=== PATIENT | female | born 1940 | race Caucasian/White ===

== ENCOUNTER 2016-09-11 07:39 | Emergency (ER) | payer OTHER ==
[~2016-09-11] VITALS: Ht 162.6 cm; Wt 90.7 kg
[~2016-09-11 07:39] MED LIST: ACET-2165 PO; ASCO500T20 PO; ASPI-1063 PO; ATOR10TA68 PO; DONE10TA44 PO; EZET10TA PO; FAMO20TA8 PO; GABA-531 PO; INSU100V11 SQ; LACTIN PO; LEVO50TA8 PO; MEMA7CAP PO; METO-442 PO
[2016-09-11 07:40] VITALS: BP_SYST 179
[2016-09-11] MEDS ORDERED: IBUPROFEN 600 MG TABLET PO ONE (08:15)
[2016-09-11] MEDS ORDERED: INSULIN ASPART 100 UNITS/ML, 10 ML VIAL SUBCUT ONE (08:30)
[2016-09-11] MEDS ORDERED: METOPROLOL SUCCINATE 50 MG TAB.SR.24H (TOPROL XL) PO ONE (08:30)
[2016-09-11] MEDS ORDERED: BENAZEPRIL HCL 20 MG TABLET (LOTENSIN) PO ONE (08:30)
[2016-09-11] MEDS ORDERED: NITROGLYCERIN 0.4 MG TAB.SUBL SL ONE (09:45)
[2016-09-11 11:20] VITALS: BP_SYST 160
== END 2016-09-11 11:20 | disposition home or self-care (01) ==
LOC: SED 07:39
DX: I10 Essential (primary) hypertension (principal); R42 Dizziness and giddiness; E11.9 Type 2 diabetes mellitus without complications; Z88.2 Allergy status to sulfonamides; Z88.1 Allergy status to other antibiotic agents; Z88.5 Allergy status to narcotic agent
CPT/HCPCS: 82962; 96372; 99283; J1815

== ENCOUNTER 2020-11-19 12:06 | Outpatient (CLI) | payer OTHER ==
[~2020-11-19 12:06] MED LIST changes: -ACET-2165 PO; +ACET325T PO; -ASPI-1063 PO; +ASPI-1457 PO
== END 2020-11-19 20:36 | disposition home or self-care (01) ==
LOC: SRD 12:06
PROVIDERS: ATTEND Internal Medicine
DX: R06.89 Other abnormalities of breathing (principal)
CPT/HCPCS: 71046-TC

== ENCOUNTER 2020-12-26 09:12 | Observation (INO) | payer OTHER ==
[~2020-12-26] VITALS: Ht 152.4 cm; Wt 82.6 kg
[2020-12-26 09:17] VITALS: BP_SYST 100
[2020-12-26] MEDS ORDERED: NS 1000 ML IV.SOLN IV ONE (09:45)
[2020-12-26] MEDS ORDERED: BENA40TA8 PO (09:51)
[2020-12-26] MEDS ORDERED: MELA5TAB12 PO (09:51)
[2020-12-26] MEDS ORDERED: SYN50 PO (09:51)
[2020-12-26] MEDS ORDERED: CETI10CA11 PO (09:51)
[2020-12-26] MEDS ORDERED: FLUT1AER (09:51)
[2020-12-26] MEDS ORDERED: LOPE2CAP PO (09:51)
[2020-12-26] MEDS ORDERED: POTA20TA83 PO (09:51)
[2020-12-26] MEDS ORDERED: MEMA7CAP PO (09:51)
[2020-12-26] MEDS ORDERED: METO50TA7 PO (09:51)
[2020-12-26] MEDS ORDERED: VITD400 PO (09:51)
[2020-12-26] MEDS ORDERED: INSU100V SQ ×2 (09:51)
[2020-12-26] MEDS ORDERED: VITD2000 PO (09:51)
[2020-12-26] MEDS ORDERED: CRAN450T9 PO (09:51)
[2020-12-26] MEDS ORDERED: FURO40SO5 PO (09:51)
[2020-12-26 11:01] LABS: PROTHROMBIN TIME 10.7 SECS (9.5-12.5)
[2020-12-26 11:25] LABS: BASOPHILS # (AUTO) 0.1 K/uL (0.0-0.2); EOSINOPHILS # (AUTO) 0.3 K/uL (0.0-0.4); EOSINOPHILS % (AUTO) 4.1 % (0.0-4.0); HEMOGLOBIN 12.9 g/dL (12.0-16.0); LYMPHOCYTES # (AUTO) 1.5 K/uL (1.0-5.5); LYMPHOCYTES % (AUTO) 21.3 % (20.5-51.5); MEAN CORPUSCULAR HEMOGLOBIN 32 pg (27-31); MEAN CORPUSCULAR HGB CONC 33 % (32-36); MEAN CORPUSCULAR VOLUME 96 fL (79.0-98.0); MONOCYTES # (AUTO) 0.7 K/uL (0.0-1.0); MONOCYTES % (AUTO) 9.4 % (1.7-9.3); NEUTROPHILS # (AUTO) 4.5 K/uL (1.8-7.7); NEUTROPHILS % (AUTO) 64.2 % (40.0-70.0); PLATELET COUNT (AUTO) 187 K/uL (130-430); RED BLOOD CELL COUNT(AUTO) 4.08 MIL/uL (4.2-6.2); RED CELL DISTRIBUTION WIDTH 14.4 % (9.0-15.0)
[2020-12-26 11:55] LABS: ANION GAP 10 (5-15); CALCIUM 8.5 mg/dL (8.4-11.0); CHLORIDE 107 mmol/L (98-107); CREATININE 2.47 mg/dL (0.55-1.30); POTASSIUM 4.3 mmol/L (3.5-5.1); SODIUM SERUM 140 mmol/L (136-145); UREA NITROGEN, BLOOD 79 mg/dL (8-21)
[2020-12-26 12:01] LABS: ALANINE AMINOTRANSFERASE 15 U/L (12-78); ALBUMIN 2.7 g/dL (3.4-4.8); ASPARTATE AMINOTRANSFERASE 11 U/L (10-37); TOTAL BILIRUBIN 0.4 mg/dL (0.0-1.0)
[2020-12-26 12:03] LABS: GLUCOSE 408 mg/dL (70-99)
[2020-12-26 12:57] LABS: BILIRUBIN,URINE NEGATIVE (NEGATIVE); GLUCOSE,URINE 1+ (NEGATIVE); KETONES,URINE NEGATIVE (NEGATIVE); LEUKOCYTE ESTERASE ,URINE 3+ (NEGATIVE); NITRITE, URINE NEGATIVE (NEGATIVE); PROTEIN URINE NEGATIVE (NEGATIVE); UROBILINOGEN,URINE 0.2 (0.2-1.0)
[2020-12-26 13:00] LABS: BLOOD, URINE TRACE (NEGATIVE); CLARITY/URINE HAZY (CLEAR); COLOR,URINE STRAW (YELLOW)
[2020-12-26 13:18] LABS: BACTERIA,URINE FEW /HPF (None Seen); WBC,URINE 20-50 /HPF (0-3)
[2020-12-26 14:52] VITALS: BP_SYST 157
[2020-12-26] MEDS: NACL 0.9% 1,000 ML IV SCH (15:11)
[2020-12-26] MEDS ORDERED: METOCLOPRAMIDE HCL 10 MG/2 ML VIAL IVP PRN (17:00)
[2020-12-26] MEDS ORDERED: MORPHINE 2 MG/ML INJ. SYRINGE IVP PRN (17:00)
[2020-12-26] MEDS ORDERED: hydrALAZINE HCL 20 MG/ML VIAL IVP PRN (17:00)
[2020-12-26] MEDS ORDERED: ACETAMINOPHEN 325 MG TABLET PO PRN (17:00)
[2020-12-26] MEDS ORDERED: cefTRIAXone 1 GM IVPB PREMIX 50 ML IV SCH (17:00)
[2020-12-26] MEDS ORDERED: ONDANSETRON HCL 4 MG/2 ML VIAL IVP PRN (17:00)
[2020-12-26] MEDS ORDERED: cloNIDine HCL 0.1 MG TABLET PO PRN (17:00)
[2020-12-26] MEDS ORDERED: DEXTROSE 50% JECT 50 ML DISP.SYRIN IVP PRN (17:00)
[2020-12-26] MEDS: INSULIN REGULAR, HUMAN 100 UNITS/ML, 10 ML VIAL (humuLIN R) SUBCUT PRN (17:59)
[2020-12-26 20:30] VITALS: BP_SYST 154
[2020-12-26] MEDS ORDERED: DONEPEZIL HCL 5 MG TABLET (ARICEPT) PO SCH (21:00)
[2020-12-26] MEDS ORDERED: ATORVASTATIN 20 MG TABLET PO SCH (21:00)
[2020-12-26] MEDS: METOPROLOL SUCCINATE 50 MG TAB.SR.24H (TOPROL XL) PO SCH (21:52)
[2020-12-26] MEDS: GABAPENTIN 400 MG CAPSULE PO SCH (21:53)
[2020-12-27] MEDS: INSULIN REGULAR, HUMAN 100 UNITS/ML, 10 ML VIAL (humuLIN R) SUBCUT PRN ×4 (00:43→18:15)
[2020-12-27 00:51] VITALS: BP_SYST 158
[2020-12-27] MEDS: NACL 0.9% 1,000 ML IV SCH ×2 (01:18→11:31)
[2020-12-27 06:53] LABS: BASOPHILS # (AUTO) 0.1 K/uL (0.0-0.2); BASOPHILS % (AUTO) 0.8 % (0.0-2.0); EOSINOPHILS # (AUTO) 0.4 K/uL (0.0-0.4); EOSINOPHILS % (AUTO) 3.9 % (0.0-4.0); HEMATOCRIT 41.1 % (36-48); HEMOGLOBIN 13.7 g/dL (12.0-16.0); LYMPHOCYTES # (AUTO) 1.6 K/uL (1.0-5.5); MEAN CORPUSCULAR HEMOGLOBIN 32 pg (27-31); MEAN CORPUSCULAR HGB CONC 33 % (32-36); MEAN CORPUSCULAR VOLUME 95 fL (79.0-98.0); MONOCYTES # (AUTO) 0.7 K/uL (0.0-1.0); MONOCYTES % (AUTO) 7.3 % (1.7-9.3); NEUTROPHILS # (AUTO) 6.5 K/uL (1.8-7.7); PLATELET COUNT (AUTO) 211 K/uL (130-430); RED BLOOD CELL COUNT(AUTO) 4.32 MIL/uL (4.2-6.2); RED CELL DISTRIBUTION WIDTH 14.5 % (9.0-15.0); WHITE BLOOD COUNT (AUTO) 9.2 K/uL (4.8-10.8)
[2020-12-27] MEDS ORDERED: LEVOTHYROXINE SODIUM 0.05 MG TABLET PO SCH (07:00)
[2020-12-27 07:33] LABS: ALANINE AMINOTRANSFERASE 16 U/L (12-78); ALBUMIN 2.8 g/dL (3.4-4.8); ASPARTATE AMINOTRANSFERASE 17 U/L (10-37); CALCIUM 8.8 mg/dL (8.4-11.0); CHLORIDE 110 mmol/L (98-107); CREATININE 1.78 mg/dL (0.55-1.30); GLUCOSE 320 mg/dL (70-99); POTASSIUM 4.2 mmol/L (3.5-5.1); SODIUM SERUM 145 mmol/L (136-145); TOTAL BILIRUBIN 0.4 mg/dL (0.0-1.0); UREA NITROGEN, BLOOD 52 mg/dL (8-21)
[2020-12-27 07:55] LABS: ANION GAP 9 (5-15)
[2020-12-27 08:00] VITALS: BP_SYST 150
[2020-12-27] MEDS ORDERED: POTASSIUM CHLORIDE 20 MEQ TAB.PRT.SR PO SCH (09:00)
[2020-12-27] MEDS ORDERED: ASPIRIN 81 MG TABLET(ECOTRIN) PO SCH (09:00)
[2020-12-27] MEDS ORDERED: FAMOTIDINE 20 MG TABLET PO SCH (09:00)
[2020-12-27] MEDS ORDERED: MEMANTINE HCL 5 MG TABLET PO SCH (09:00)
[2020-12-27] MEDS ORDERED: ACET-2634 PO (09:22)
[2020-12-27] MEDS: METOPROLOL SUCCINATE 50 MG TAB.SR.24H (TOPROL XL) PO SCH (11:23)
[2020-12-27 11:25] VITALS: BP_SYST 138
[2020-12-27] MEDS: GABAPENTIN 400 MG CAPSULE PO SCH ×2 (11:26→18:13)
[2020-12-27] MEDS ORDERED: INSU100V SQ (12:08)
[2020-12-27] MEDS ORDERED: LOPERAMIDE HCL 2 MG CAPSULE PO PRN (12:15)
[2020-12-27 15:27] VITALS: BP_SYST 147
[2020-12-27] MEDS ORDERED: LEVO250T58 PO (16:44)
[2020-12-27 17:07] VITALS: BP_SYST 147
== END 2020-12-27 17:50 | disposition home or self-care (01) ==
LOC: SED 09:12 → SMU 12:37
PROVIDERS: ADMIT Internal Medicine Hospice and Palliative Medicine; ATTEND Internal Medicine Hospice and Palliative Medicine
DX: E11.65 Type 2 diabetes mellitus with hyperglycemia (principal); Z20.822 Contact with and (suspected) exposure to COVID-19; I12.9 Hypertensive chronic kidney disease with stage 1 through stage 4 chronic kidney disease, or unspecified chronic kidney disease; E11.22 Type 2 diabetes mellitus with diabetic chronic kidney disease; N18.9 Chronic kidney disease, unspecified; N17.9 Acute kidney failure, unspecified; H81.10 Benign paroxysmal vertigo, unspecified ear; R32 Unspecified urinary incontinence; E78.00 Pure hypercholesterolemia, unspecified; Z79.899 Other long term (current) drug therapy; Z90.710 Acquired absence of both cervix and uterus
CPT/HCPCS: 36415 ×2; 71045; 76770; 80053 ×2; 81000; 82962 ×2; 83036; 83605; 84443; 84484; 85025 ×2; 85610; 85730; 87040; 87086; 87426; 93005; 96361 ×2; 96365; 96372 ×2; 97163; 97530; 99285; G0378 ×2; J0696 ×2; J1815; 96360

== ENCOUNTER 2022-08-16 12:08 | Emergency (ER) | payer OTHER ==
[~2022-08-16] VITALS: Ht 152.4 cm; Wt 74.8 kg
[~2022-08-16 12:08] MED LIST changes: +ACET-2634 PO; -ACET325T PO; +CETI10CA11 PO; +CRAN450T9 PO; -EZET10TA PO; +FLUT1AER; +FURO40SO5 PO; +INSU100V SQ; -INSU100V11 SQ; -LACTIN PO; -LEVO50TA8 PO; +LOPE2CAP PO; +MELA5TAB12 PO; -METO-442 PO; +METO50TA7 PO; +POTA-198 PO; +SYN50 PO; +VITD2000 PO
--- NOTE | 2022-08-16 12:12 | NUR ---
Patient BIBA for gen weakness for one hour ago. Her and her sister went to hang out at [employer]. Patient stays at [facility]. Patient usually gets around in wheelchair. Patient's sister called 911 while at [employer]. Patient was sitting on walker. Patient has hx htn, dm, chf, High cholesterol. Allergic to sulfa, codeine. Patient's vital signs stable according to EMT. Report received from ADONIS Rios.
[2022-08-16 12:15] VITALS: BP_SYST 104
--- NOTE | 2022-08-16 12:15 | NUR ---
ER at bedside examining patient.
--- NOTE | 2022-08-16 12:15 | NUR ---
Althea means in ED - 08/16/22 at 1216 by [id number] KIYA Brady at bedside examining patient.
--- NOTE | 2022-08-16 12:28 | NUR ---
Patient's sister's number is:
[2022-08-16 12:50] LABS: BASOPHILS # (AUTO) 0.1 K/uL (0.0-0.2); EOSINOPHILS # (AUTO) 0.3 K/uL (0.0-0.4); EOSINOPHILS % (AUTO) 2.9 % (0.0-4.0); HEMATOCRIT 39.8 % (36-48); HEMOGLOBIN 13.3 g/dL (12.0-16.0); LYMPHOCYTES # (AUTO) 1.9 K/uL (1.0-5.5); LYMPHOCYTES % (AUTO) 19.1 % (20.5-51.5); MEAN CORPUSCULAR HEMOGLOBIN 33 pg (27-31); MEAN CORPUSCULAR HGB CONC 33 % (32-36); MEAN CORPUSCULAR VOLUME 98 fL (79.0-98.0); MONOCYTES # (AUTO) 0.8 K/uL (0.0-1.0); MONOCYTES % (AUTO) 8.5 % (1.7-9.3); NEUTROPHILS # (AUTO) 6.7 K/uL (1.8-7.7); NEUTROPHILS % (AUTO) 68.5 % (40.0-70.0); PLATELET COUNT (AUTO) 259 K/uL (130-430); RED BLOOD CELL COUNT(AUTO) 4.05 MIL/uL (4.2-6.2); RED CELL DISTRIBUTION WIDTH 13.9 % (9.0-15.0); WHITE BLOOD COUNT (AUTO) 9.7 K/uL (4.8-10.8)
--- NOTE | 2022-08-16 12:57 | NUR ---
CALLED RECEIVED FROM SHAREE WILSON, WOULD LIKE TO BE NOTIFIED FIRST [phone]
[2022-08-16 13:07] LABS: ANION GAP 9 (5-15); CALCIUM 9.6 mg/dL (8.4-11.0); CHLORIDE 104 mmol/L (98-107); CREATININE 1.97 mg/dL (0.55-1.30); GLUCOSE 114 mg/dL (70-99); UREA NITROGEN, BLOOD 55 mg/dL (8-21)
[2022-08-16 13:14] LABS: ALANINE AMINOTRANSFERASE 21 U/L (12-78); ASPARTATE AMINOTRANSFERASE 17 U/L (10-37); TOTAL BILIRUBIN 0.4 mg/dL (0.0-1.0)
--- NOTE | 2022-08-16 13:27 | NUR ---
Patient unable to urinate in bedpan at this time. made aware.
--- NOTE | 2022-08-16 13:45 | NUR ---
SPOKE WITH SISTER SHAREE AND PT WILL BE PICKED UP IN 1/2 HOUR
--- NOTE | 2022-08-16 13:46 | NUR ---
PT WAS D/C'D HOME. INSTRUCTION GIVEN AND EXPLAINED TO PT. PT VERBALIZED UNDERSTANDING. SISTER WAS CALLED TO PICKUP PT BY PAZ ROLON. ETA 30 MINUTES.
[2022-08-16 13:49] VITALS: BP_SYST 114
== END 2022-08-16 13:46 | disposition home or self-care (01) ==
LOC: SED 12:08
DX: R53.1 Weakness (principal); E11.9 Type 2 diabetes mellitus without complications; I10 Essential (primary) hypertension; K21.9 Gastro-esophageal reflux disease without esophagitis; Z88.1 Allergy status to other antibiotic agents; Z88.2 Allergy status to sulfonamides; Z88.5 Allergy status to narcotic agent; Z88.6 Allergy status to analgesic agent; Z79.4 Long term (current) use of insulin; Z79.899 Other long term (current) drug therapy; Z20.822 Contact with and (suspected) exposure to COVID-19
CPT/HCPCS: 36415; 80053; 83605; 84484; 85025; 87040; 93005; 99284

== ENCOUNTER 2023-11-26 11:25 | Inpatient (IN) | payer OTHER ==
[~2023-11-26] VITALS: Ht 167.6 cm; Wt 84.8 kg
[2023-11-26 11:29] VITALS: BP_SYST 110; PULSE 70; RESP 22; TEMP 97.5; O2SAT 98
[2023-11-26 12:00] LABS: BILIRUBIN,URINE NEGATIVE (NEGATIVE); BLOOD, URINE 2+ (NEGATIVE); CLARITY/URINE TURBID (CLEAR); COLOR,URINE YELLOW (YELLOW); GLUCOSE,URINE NEGATIVE (NEGATIVE); KETONES,URINE NEGATIVE (NEGATIVE); LEUKOCYTE ESTERASE ,URINE 3+ (NEGATIVE); NITRITE, URINE POSITIVE (NEGATIVE); PH,URINE 5.5 (5.0-8.0); PROTEIN URINE TRACE (NEGATIVE); UROBILINOGEN,URINE 0.2 (0.2-1.0)
[2023-11-26] MEDS: NS 1000 ML IV.SOLN IV ONE (12:12)
[2023-11-26 12:17] LABS: BACTERIA,URINE FEW /HPF (None Seen); RBC,URINE 20-50 /HPF (0-3)
[2023-11-26 12:18] LABS: WBC,URINE >100 /HPF (0-3)
[2023-11-26 12:23] LABS: BASOPHILS # (AUTO) 0.1 K/uL (0.0-0.2); EOSINOPHILS # (AUTO) 0.3 K/uL (0.0-0.4); EOSINOPHILS % (AUTO) 2.7 % (0.0-4.0); HEMATOCRIT 40.4 % (36-48); HEMOGLOBIN 13.3 g/dL (12.0-16.0); LYMPHOCYTES # (AUTO) 2.7 K/uL (1.0-5.5); LYMPHOCYTES % (AUTO) 22.3 % (20.5-51.5); MEAN CORPUSCULAR HEMOGLOBIN 34 pg (27-31); MEAN CORPUSCULAR HGB CONC 33 % (32-36); MEAN CORPUSCULAR VOLUME 103 fL (79.0-98.0); MONOCYTES % (AUTO) 8.6 % (1.7-9.3); NEUTROPHILS # (AUTO) 7.8 K/uL (1.8-7.7); NEUTROPHILS % (AUTO) 65.4 % (40.0-70.0); PLATELET COUNT (AUTO) 284 K/uL (130-430); RED BLOOD CELL COUNT(AUTO) 3.93 MIL/uL (4.2-6.2); RED CELL DISTRIBUTION WIDTH 14.2 % (9.0-15.0); WHITE BLOOD COUNT (AUTO) 11.9 K/uL (4.8-10.8)
[2023-11-26] MEDS ORDERED: cefTRIAXone 1 GM VIAL ONE (12:27)
[2023-11-26] MEDS: cefTRIAXone 1 GM in D5W 50 ML IV ONE (12:27)
[2023-11-26 12:30] LABS: INFLUENZA TYPE A Negative (NEGATIVE); INFLUENZA TYPE B NEGATIVE (NEGATIVE)
[2023-11-26 12:38] LABS: INR 1.1 (0.8-1.2); PROTHROMBIN TIME 11.1 SECS (9.5-12.5)
[2023-11-26 12:44] LABS: ALANINE AMINOTRANSFERASE 12 U/L (12-78); ALBUMIN 2.9 g/dL (3.4-4.8); ANION GAP 11 (5-15); ASPARTATE AMINOTRANSFERASE 6 U/L (10-37); BILIRUBIN,DIRECT 0.1 mg/dL (0.0-0.3); CALCIUM 9.7 mg/dL (8.4-11.0); CARBON DIOXIDE 25 mmol/L (23-29); CREATINE KINASE, TOTAL 21 U/L (26-192); CREATININE 3.56 mg/dL (0.55-1.30); GLUCOSE 103 mg/dL (74-106); POTASSIUM 5.2 mmol/L (3.5-5.1); SODIUM SERUM 156 mmol/L (136-145); TOTAL BILIRUBIN 0.3 mg/dL (0.0-1.0); TOTAL PROTEIN, SERUM 7.4 g/dL (6.4-8.3); UREA NITROGEN, BLOOD 92 mg/dL (8-21)
[2023-11-26 12:45] LABS: CHLORIDE 120 mmol/L (98-107)
[2023-11-26] MEDS ORDERED: INSU100V3 SQ ×2 (12:48)
[2023-11-26] MEDS ORDERED: ALBUTEROL SULFATE 0.083% 2.5 MG/3 ML VIAL.NEB INH PRN (13:00)
[2023-11-26] MEDS ORDERED: traMADol HCL HCL 50 MG TABLET (ULTRAM) PO PRN (13:00)
[2023-11-26] MEDS ORDERED: ONDANSETRON HCL 4 MG/2 ML VIAL IVP PRN (13:00)
[2023-11-26 13:20] VITALS: PULSE 70; O2SAT 98
[2023-11-26] MEDS: D5/0.45 NS 1,000 ML IV SCH (14:25)
[2023-11-26 14:45] VITALS: BP_SYST 115; PULSE 66; RESP 16; TEMP 97.2; O2SAT 98
[2023-11-26] MEDS: SODIUM ZIRCONIUM CYCLOSILICATE 10 GM POWD.PACK PO ONE (14:57)
[2023-11-26 15:02] VITALS: BP_SYST 115; PULSE 66; RESP 16; TEMP 97.2
[2023-11-26 17:29] VITALS: BP_SYST 121; PULSE 61; RESP 17; TEMP 97.6; O2SAT 94
[2023-11-26] MEDS ORDERED: PIPERACILLIN/TAZO 3.375 GM in D5W 50 ML IV SCH (18:00)
[2023-11-26 19:13] LABS: ANION GAP 10 (5-15); CALCIUM 8.8 mg/dL (8.4-11.0); CARBON DIOXIDE 23 mmol/L (23-29); CREATININE 2.88 mg/dL (0.55-1.30); GLUCOSE 74 mg/dL (74-106); POTASSIUM 4.7 mmol/L (3.5-5.1); SODIUM SERUM 157 mmol/L (136-145); UREA NITROGEN, BLOOD 84 mg/dL (8-21)
[2023-11-26 19:38] LABS: CHLORIDE 124 mmol/L (98-107)
[2023-11-26 20:00] VITALS: BP_SYST 116; PULSE 77; RESP 20; TEMP 96.8; O2SAT 77; O2SAT 98
[2023-11-26] MEDS: VANCOMYCIN HCL 1,000 MG in NS 250 ML IV SCH (20:35)
[2023-11-26] MEDS: METOPROLOL SUCCINATE 50 MG TAB.SR.24H (TOPROL XL) PO SCH (21:00)
[2023-11-26] MEDS: ATORVASTATIN 20 MG TABLET PO SCH (21:00)
[2023-11-26] MEDS: DONEPEZIL HCL 5 MG TABLET (ARICEPT) PO SCH (21:00)
[2023-11-26] MEDS: PIPERACILLIN/TAZOBACTAM 2.25 GM/ D5W 50 ML IV SCH (22:06)
[2023-11-27] VITALS: BP_SYST 135; PULSE 105; PULSE 81; RESP 16; RESP 18; TEMP 97.2; TEMP 97.4; O2SAT 95
[2023-11-27 04:37] VITALS: RESP 20; TEMP 96.8; O2SAT 97
[2023-11-27 05:44] LABS: BASOPHILS # (AUTO) 0.1 K/uL (0.0-0.2); EOSINOPHILS # (AUTO) 0.3 K/uL (0.0-0.4); EOSINOPHILS % (AUTO) 3.4 % (0.0-4.0); HEMATOCRIT 38.5 % (36-48); HEMOGLOBIN 12.9 g/dL (12.0-16.0); LYMPHOCYTES # (AUTO) 1.4 K/uL (1.0-5.5); LYMPHOCYTES % (AUTO) 14.7 % (20.5-51.5); MEAN CORPUSCULAR HEMOGLOBIN 34 pg (27-31); MEAN CORPUSCULAR HGB CONC 34 % (32-36); MEAN CORPUSCULAR VOLUME 102 fL (79.0-98.0); MONOCYTES # (AUTO) 0.8 K/uL (0.0-1.0); MONOCYTES % (AUTO) 8.2 % (1.7-9.3); NEUTROPHILS % (AUTO) 72.7 % (40.0-70.0); PLATELET COUNT (AUTO) 245 K/uL (130-430); RED BLOOD CELL COUNT(AUTO) 3.79 MIL/uL (4.2-6.2); RED CELL DISTRIBUTION WIDTH 13.9 % (9.0-15.0); WHITE BLOOD COUNT (AUTO) 9.6 K/uL (4.8-10.8)
[2023-11-27 06:12] LABS: ALANINE AMINOTRANSFERASE 12 U/L (12-78); ALBUMIN 2.7 g/dL (3.4-4.8); ANION GAP 15 (5-15); ASPARTATE AMINOTRANSFERASE 11 U/L (10-37); CALCIUM 9.3 mg/dL (8.4-11.0); CARBON DIOXIDE 21 mmol/L (23-29); CREATININE 2.42 mg/dL (0.55-1.30); GLUCOSE 234 mg/dL (74-106); PHOSPHORUS 3.5 mg/dL (2.7-4.5); POTASSIUM 4.6 mmol/L (3.5-5.1); SODIUM SERUM 156 mmol/L (136-145); TOTAL BILIRUBIN 0.4 mg/dL (0.0-1.0); TOTAL PROTEIN, SERUM 6.8 g/dL (6.4-8.3); UREA NITROGEN, BLOOD 68 mg/dL (8-21)
[2023-11-27] MEDS: LEVOTHYROXINE SODIUM 0.05 MG TABLET PO SCH (06:27)
[2023-11-27 06:29] LABS: CHLORIDE 120 mmol/L (98-107)
[2023-11-27 08:00] VITALS: BP_SYST 153; PULSE 89; RESP 16; TEMP 97.2; O2SAT 94
[2023-11-27] MEDS ORDERED: MEMANTINE HCL 7 MG CAP.SPR.24 PO SCH (09:00)
[2023-11-27] MEDS: MEMANTINE HCL 5 MG TABLET PO SCH (09:00)
[2023-11-27] MEDS ORDERED: DEXTROSE 50% JECT 50 ML DISP.SYRIN IVP PRN (09:45)
[2023-11-27] MEDS ORDERED: GLUCOSE (DEXTROSE) ORAL GEL -Adults PO PRN (09:45)
[2023-11-27] MEDS: 0.45% NS 500 ML IV ONE (11:28)
[2023-11-27] MEDS: INSULIN REGULAR, HUMAN 100 UNITS/ML, 3 ML VIAL (humuLIN R) SUBCUT PRN (11:35)
[2023-11-27 12:16] VITALS: BP_SYST 129; PULSE 77; RESP 16; TEMP 98.3; O2SAT 95
[2023-11-27 16:45] VITALS: BP_SYST 124; PULSE 79; RESP 17; TEMP 97.8; O2SAT 95
[2023-11-27 20:00] VITALS: PULSE 95; RESP 18; TEMP 97; O2SAT 97
[2023-11-28] VITALS (8 sets, daily range): BP systolic 100–131; PULSE 61–111; RESP 16–20; TEMP 97–98.4; O2SAT 95–97
[2023-11-28] MEDS: INSULIN GLARGINE 100 UNITS/ML, 10 ML VIAL SUBCUT SCH (00:03)
[2023-11-28 06:24] LABS: BASOPHILS # (AUTO) 0.1 K/uL (0.0-0.2); EOSINOPHILS # (AUTO) 0.5 K/uL (0.0-0.4); EOSINOPHILS % (AUTO) 4.8 % (0.0-4.0); HEMOGLOBIN 12.2 g/dL (12.0-16.0); LYMPHOCYTES # (AUTO) 1.8 K/uL (1.0-5.5); LYMPHOCYTES % (AUTO) 18.9 % (20.5-51.5); MEAN CORPUSCULAR HEMOGLOBIN 34 pg (27-31); MEAN CORPUSCULAR HGB CONC 34 % (32-36); MEAN CORPUSCULAR VOLUME 101 fL (79.0-98.0); NEUTROPHILS # (AUTO) 6.1 K/uL (1.8-7.7); NEUTROPHILS % (AUTO) 64.3 % (40.0-70.0); PLATELET COUNT (AUTO) 221 K/uL (130-430); RED BLOOD CELL COUNT(AUTO) 3.58 MIL/uL (4.2-6.2); RED CELL DISTRIBUTION WIDTH 13.6 % (9.0-15.0); WHITE BLOOD COUNT (AUTO) 9.5 K/uL (4.8-10.8)
[2023-11-28 06:40] LABS: ALANINE AMINOTRANSFERASE 18 U/L (12-78); ALBUMIN 2.4 g/dL (3.4-4.8); ANION GAP 14 (5-15); ASPARTATE AMINOTRANSFERASE 16 U/L (10-37); CALCIUM 9.1 mg/dL (8.4-11.0); CARBON DIOXIDE 21 mmol/L (23-29); CHLORIDE 118 mmol/L (98-107); CREATININE 1.96 mg/dL (0.55-1.30); GLUCOSE 209 mg/dL (74-106); POTASSIUM 4.2 mmol/L (3.5-5.1); SODIUM SERUM 153 mmol/L (136-145); TOTAL BILIRUBIN 0.3 mg/dL (0.0-1.0); TOTAL PROTEIN, SERUM 6.3 g/dL (6.4-8.3); UREA NITROGEN, BLOOD 50 mg/dL (8-21)
[2023-11-28] MEDS ORDERED: LEVOFLOXACIN 250 MG/D5W 50 ML IV SCH (09:00)
[2023-11-28] MEDS: MUPIROCIN 2% TOPICAL OINTMENT 22 GM TP ONE (11:23)
[2023-11-28] MEDS: MUPIROCIN 2% TOPICAL OINTMENT 22 GM TP SCH (20:19)
[2023-11-29 01:22] VITALS: RESP 20; TEMP 97.1
[2023-11-29 04:19] LABS: ALANINE AMINOTRANSFERASE 20 U/L (12-78); ALBUMIN 2.5 g/dL (3.4-4.8); ANION GAP 12 (5-15); ASPARTATE AMINOTRANSFERASE 16 U/L (10-37); CALCIUM 9.1 mg/dL (8.4-11.0); CARBON DIOXIDE 24 mmol/L (23-29); CHLORIDE 115 mmol/L (98-107); CREATININE 1.88 mg/dL (0.55-1.30); GLUCOSE 143 mg/dL (74-106); POTASSIUM 3.6 mmol/L (3.5-5.1); SODIUM SERUM 151 mmol/L (136-145); TOTAL BILIRUBIN 0.6 mg/dL (0.0-1.0); TOTAL PROTEIN, SERUM 6.4 g/dL (6.4-8.3); UREA NITROGEN, BLOOD 39 mg/dL (8-21)
[2023-11-29 04:40] LABS: BASOPHILS # (AUTO) 0.1 K/uL (0.0-0.2); BASOPHILS % (AUTO) 0.8 % (0.0-2.0); EOSINOPHILS # (AUTO) 0.4 K/uL (0.0-0.4); EOSINOPHILS % (AUTO) 3.6 % (0.0-4.0); HEMATOCRIT 35.8 % (36-48); LYMPHOCYTES # (AUTO) 2.1 K/uL (1.0-5.5); LYMPHOCYTES % (AUTO) 17.7 % (20.5-51.5); MEAN CORPUSCULAR HEMOGLOBIN 34 pg (27-31); MEAN CORPUSCULAR HGB CONC 34 % (32-36); MEAN CORPUSCULAR VOLUME 101 fL (79.0-98.0); MONOCYTES # (AUTO) 1.3 K/uL (0.0-1.0); MONOCYTES % (AUTO) 10.7 % (1.7-9.3); NEUTROPHILS # (AUTO) 7.9 K/uL (1.8-7.7); NEUTROPHILS % (AUTO) 67.2 % (40.0-70.0); PLATELET COUNT (AUTO) 199 K/uL (130-430); RED BLOOD CELL COUNT(AUTO) 3.56 MIL/uL (4.2-6.2); RED CELL DISTRIBUTION WIDTH 13.8 % (9.0-15.0); WHITE BLOOD COUNT (AUTO) 11.8 K/uL (4.8-10.8)
[2023-11-29 08:00] VITALS: BP_SYST 142; PULSE 100; RESP 20; TEMP 97.8; O2SAT 98
[2023-11-29 12:08] VITALS: BP_SYST 145; PULSE 102; RESP 17; TEMP 98.6; O2SAT 97
[2023-11-29] MEDS: cefTRIAXone 1 GM in D5W 50 ML IV ONE (13:36)
[2023-11-29 13:45] VITALS: PULSE 102; O2SAT 97
[2023-11-29 18:26] VITALS: BP_SYST 140; PULSE 101; RESP 18; TEMP 98.3; O2SAT 95
[2023-11-29 20:00] VITALS: BP_SYST 137; PULSE 105; RESP 20; TEMP 98.2; O2SAT 95; O2SAT 96
[2023-11-29] MEDS: DOXYCYCLINE HYCLATE 100 MG in D5W 100 ML IV SCH (22:38)
[2023-11-29] MEDS ORDERED: METOPROLOL TARTRATE 5 MG/5 ML VIAL IVP PRN ×2 (23:00→23:30)
[2023-11-29] MEDS: LORazepam 2 MG/ML VIAL IVP PRN (23:42)
[2023-11-30] MEDS: METOPROLOL TARTRATE 5 MG/5 ML VIAL IVP PRN (00:05)
[2023-11-30 01:00] VITALS: BP_SYST 118; PULSE 109; RESP 20; TEMP 97.6; O2SAT 96
[2023-11-30 05:43] LABS: BASOPHILS # (AUTO) 0.1 K/uL (0.0-0.2); BASOPHILS % (AUTO) 0.6 % (0.0-2.0); EOSINOPHILS # (AUTO) 0.5 K/uL (0.0-0.4); EOSINOPHILS % (AUTO) 4.6 % (0.0-4.0); HEMATOCRIT 37.5 % (36-48); HEMOGLOBIN 12.6 g/dL (12.0-16.0); LYMPHOCYTES # (AUTO) 1.4 K/uL (1.0-5.5); LYMPHOCYTES % (AUTO) 12.3 % (20.5-51.5); MEAN CORPUSCULAR HEMOGLOBIN 33 pg (27-31); MEAN CORPUSCULAR HGB CONC 34 % (32-36); MEAN CORPUSCULAR VOLUME 100 fL (79.0-98.0); MONOCYTES % (AUTO) 9.1 % (1.7-9.3); NEUTROPHILS # (AUTO) 8.1 K/uL (1.8-7.7); NEUTROPHILS % (AUTO) 73.4 % (40.0-70.0); PLATELET COUNT (AUTO) 222 K/uL (130-430); RED BLOOD CELL COUNT(AUTO) 3.75 MIL/uL (4.2-6.2); RED CELL DISTRIBUTION WIDTH 13.7 % (9.0-15.0); WHITE BLOOD COUNT (AUTO) 11.1 K/uL (4.8-10.8)
[2023-11-30 05:47] LABS: ERYTHROCYTE SEDIMENTATION RATE 43 MM/HR (0-20)
[2023-11-30 06:08] LABS: ANION GAP 15 (5-15); CALCIUM 9.3 mg/dL (8.4-11.0); CARBON DIOXIDE 22 mmol/L (23-29); CHLORIDE 112 mmol/L (98-107); CREATININE 1.45 mg/dL (0.55-1.30); GLUCOSE 224 mg/dL (74-106); PHOSPHORUS 2.8 mg/dL (2.7-4.5); POTASSIUM 3.3 mmol/L (3.5-5.1); SODIUM SERUM 149 mmol/L (136-145); UREA NITROGEN, BLOOD 22 mg/dL (8-21)
[2023-11-30 07:18] VITALS: O2SAT 98
[2023-11-30 08:15] VITALS: BP_SYST 130; PULSE 101; RESP 20; TEMP 98.2; O2SAT 99
[2023-11-30] MEDS: cefTRIAXone 1 GM in D5W 50 ML IV SCH (08:47)
[2023-11-30] MEDS ORDERED: D5W 1,000 ML IV SCH (10:15)
[2023-11-30 12:10] VITALS: BP_SYST 142; PULSE 86; RESP 16; TEMP 97.8; O2SAT 98
[2023-11-30] MEDS ORDERED: POTASSIUM CHLORIDE 20 MEQ TABLET.ER PO ONE (12:45)
[2023-11-30] MEDS ORDERED: ALBUMIN HUMAN 25% 100 ML IV SCH (14:30)
[2023-11-30 14:46] VITALS: BP_SYST 142; PULSE 103; RESP 15; TEMP 98; O2SAT 94
[2023-11-30 14:48] VITALS: BP_SYST 142; PULSE 103; RESP 16; TEMP 98; O2SAT 94
[2023-11-30] MEDS ORDERED: METOPROLOL TARTRATE 50 MG TABLET PO SCH (21:00)
== END 2023-11-30 15:30 | disposition hospice, home (50) | DRG 871 ==
LOC: SED 11:25 → STU 12:51
PROVIDERS: ADMIT Family Medicine; ATTEND Family Medicine
DX: A41.9 Sepsis, unspecified organism (principal); G93.41 Metabolic encephalopathy; E87.1 Hypo-osmolality and hyponatremia; N39.0 Urinary tract infection, site not specified; N17.9 Acute kidney failure, unspecified; E87.0 Hyperosmolality and hypernatremia; E87.6 Hypokalemia; E11.65 Type 2 diabetes mellitus with hyperglycemia; I12.9 Hypertensive chronic kidney disease with stage 1 through stage 4 chronic kidney disease, or unspecified chronic kidney disease; Z20.822 Contact with and (suspected) exposure to COVID-19; E11.22 Type 2 diabetes mellitus with diabetic chronic kidney disease; N18.9 Chronic kidney disease, unspecified; E03.9 Hypothyroidism, unspecified; E78.5 Hyperlipidemia, unspecified; E87.8 Other disorders of electrolyte and fluid balance, not elsewhere classified; Z79.899 Other long term (current) drug therapy; B96.20 Unspecified Escherichia coli [E. coli] as the cause of diseases classified elsewhere; E88.09 Other disorders of plasma-protein metabolism, not elsewhere classified; R53.81 Other malaise
CPT/HCPCS: 36415; 70450-TC; 71045; 71250-TC; 80048; 80053; 80076; 81000; 81001; 81015; 82550; 82948; 83037; 83605; 83735; 84100; 84484; 85025; 85610; 85651; 85730; 87040; 87081; 87086; 87186; 92610-GN; 94070; 94760; 96365; 97110-GP; 97530-GP; 99285; G0378; J0696; J1815; J1956; J2060; J2543; J3370; J3490; J7050; J7060